=== PATIENT | female | born 1935 | race Caucasian/White ===

== ENCOUNTER 2023-03-15 12:23 | Outpatient (REF) | payer MEDICARE, SELFPAY ==
[2023-03-17 23:09] LABS: TS Negative Control Passed; TS Panel A 10; TS Panel B 3; TS Positive Control Passed; TSpotTB Positive (Negative)
== END 2023-03-15 12:24 | disposition home or self-care (01) ==
LOC: HO.CHCLDS 12:23
PROVIDERS: Visit Provider Pediatrics
DX: Z11.1 Encounter for screening for respiratory tuberculosis (principal)
CPT/HCPCS: 36415; 86481

== ENCOUNTER 2023-03-22 11:49 | Outpatient (REF) | payer OTHER, SELFPAY ==
--- NOTE | ~2023-03-22 | XR_ITS ---
EXAMINATION: XR CHEST 2 VIEWS CLINICAL INFORMATION: Pulmonary tuberculosis. COMPARISON: Chest radiographs dated 05/14/2009. TECHNIQUE: Frontal and lateral views of the chest were obtained. FINDINGS: The heart, great vessels, pulmonary vasculature and mediastinum are normal. The lungs show no focal infiltrate, effusion or pneumothorax. There is no mass, nodule or thoracic lymphadenopathy. There is no acute osseous abnormality. XR/XR chest 2V IMPRESSION: No active cardiopulmonary disease.
== END 2023-03-22 11:50 | disposition home or self-care (01) ==
LOC: HO.XRAY 11:49
PROVIDERS: PCP Pediatrics; Visit Provider Pediatrics
DX: Z11.1 Encounter for screening for respiratory tuberculosis (principal)
CPT/HCPCS: 71046

== ENCOUNTER 2024-01-30 10:47 | Outpatient (REF) | payer OTHER, SELFPAY ==
[2024-01-30 14:03] LABS: MANUAL DIFF FLAG NO
[2024-01-30 14:13] LABS: Eosinophils Percent Auto 6.1 % (0-4); Hematocrit 34.9 % (37.0-47.0); Hemoglobin 11.8 g/dl (12.0-16.0); Imm Gran Pct Auto 0.4 % (0.0-0.4); Lymphocytes Percent Auto 33.6 % (20-40); Mean Corpuscular HGB Conc 33.8 g/dl (31.0-35.0); Mean Corpuscular Hemoglobin 30.9 pg (27.0-33.0); Mean Corpuscular Volume 91.4 fL (80.0-98.0); Mean Platelet Volume 11.8 fL (9.4-12.3); Monocytes Percent Auto 5.8 % (2-11); Neutrophils Percent Auto 53.3 % (45-73); Platelet Count 170 X10*3/uL (160-400); Red Blood Count 3.82 X10*6/uL (4.20-5.50); Red Cell Distribution Width 12.3 % (11.0-16.0); White Blood Count 7.4 X10*3/uL (4.8-10.8)
[2024-01-30 14:14] LABS: Basophils Absolute Auto 0.1 X10*3/uL (0.0-0.2); Basophils Percent Auto 0.8 % (0-2); Eosinophils Absolute Auto 0.5 X10*3/uL (0.0-0.4); Imm Gran Abs Auto 0.03 X10*3/uL (0.00-0.03); Lymphocytes Absolute Auto 2.5 X10*3/uL (1.2-4.9); Monocytes Absolute Auto 0.4 X10*3/uL (0.1-1.2); Neutrophils Absolute Auto 3.9 x10*3/uL (2.0-8.3)
[2024-01-30 14:40] LABS: Alanine Aminotransferase 16 U/L (0-31); Albumin Level 4.2 g/dL (3.5-5.0); Alkaline Phosphatase 94 U/L (39-117); Anion Gap 15 (12-20); Aspartate Amino Transferase 18 U/L (5-31); Bilirubin Direct 0.2 mg/dL (0.0-0.5); Bilirubin Total 0.5 mg/dL (0.0-1.0); Blood Urea Nitrogen 21 mg/dL (9-16); Calcium 10.5 mg/dL (8.4-10.2); Carbon Dioxide 27 mmol/L (22-29); Chloride 100 mmol/L (96-108); Estimated Glomerular Filt Rate 47; Glucose Random 264 mg/dL (60-115); Iron 72 mcg/dL (30-160); Percent Iron Saturation 29 % (15-50); Potassium 4.9 mmol/L (3.3-5.1); Sodium 137 mmol/L (135-145); Total Iron Binding Capacity 252 mcg/dL (228-428); Total Protein 6.7 g/dL (6.5-8.0); Unsaturated Iron Binding 180 ug/dL
[2024-01-30 14:56] LABS: TSH reflex Free T4 3.12 uIU/mL (0.32-4.0)
[2024-01-30 14:57] LABS: Folate 10.1 ng/mL (> or = 4.0); Vitamin B12 740 pg/mL (200-900)
== END 2024-01-30 10:48 | disposition home or self-care (01) ==
LOC: HO.CHCLDS 10:47
PROVIDERS: Visit Provider Pediatrics
DX: I10 Essential (primary) hypertension (principal); E11.9 Type 2 diabetes mellitus without complications; Z79.4 Long term (current) use of insulin; N39.46 Mixed incontinence; M17.0 Bilateral primary osteoarthritis of knee
CPT/HCPCS: 36415; 80048; 80076; 82607; 82746; 83540; 84443; 85025

== ENCOUNTER 2025-02-21 10:41 | Outpatient (REF) | payer OTHER, SELFPAY ==
--- OUTSIDE RECORDS SUMMARY | 2025-02-21 10:43 | XMS_ITS | Clinical Summary ---
Author Organization [facility] ity Address [address] [place] [address] Care Team Providers Care Tufter Hand Name Role Phone Unavailable Primary Care Provider Unavailabl e Social History Tobacco Use Types Packs/Day Years Used Date Smoking Tobacco: Never Assessed Comments Unknown Sex and Gender Information Value Date Recorded Sex Assigned at Not on file Legal Sex Female 4:55 AM EST Gender Identity Not on file Sexual Orientation Not on file Plan of Treatment Health Maintenance Due Date Last Done Comments DTaP,Tdap,and Td Vaccines (1 - Tdap) [birth year]20/1954 Pneumococcal Vaccine: 50+ Ye ars (1 of 1 - PCV) 1987 Zoster Vaccines (1 of 2) 1987 RSV Immunization Adult Patie nts (1 - 1-dose 75+ series) 01/20/2012 COVID-19 Vaccine ( - 2023-2 5 season) 2024 Depression Screening 07/17/2024 Influenza Vaccine (#1) 2025 HIB Vaccines Aged Out No longer eligi ble based on patient's age to complete this topic HPV Vaccines Aged Out No longer eligi ble based on patient's age to complete this topic Hepatitis A Vaccines Aged Out No long er eligible based on patient's age to complete this topic Hepatitis B Vaccines Aged Out No long er eligible based on patient's age to complete this topic IPV Vaccines Aged Out No longer eligi ble based on patient's age to complete this topic MMR Vaccines Aged Out No longer eligi ble based on patient's age to complete this topic Meningococcal ACWY Vaccine Aged Out N o longer eligible based on patient's age to complete this topic Meningococcal B Vaccine Aged Out No l onger eligible based on patient's age to complete this topic RSV Immunization Patients Un sixto 20 months Aged Out No longer eligible b ased on patient's age to complete this topic Varicella Vaccines Aged Out No longer eligible based on patient's age to complete this topic
--- OUTSIDE RECORDS SUMMARY | 2025-02-21 10:43 | XMS_ITS | Encounter Summary ---
Author Organization [employer] Address [address] [place] [address] Care Team Providers Care Commissioning Engineer Name Role Phone Katarina Grey MD Primary Care Provider [phone] Encounter Details Date Type Department Care Team ([facility] st Contact Info) Description 10/10/[address] [facility] [address] [place] [address] Provider, MD Phil Social History Tobacco Use Types Packs/Day Years Used Date Smoking Tobacco: Never Passive Smoke Exposure: Never Smokeless Tobacco: Never Alcohol Answer Date Recorded Frequency of Alcohol Consumption Not on file 05/07/2024 Average Number of Drinks Not on file 024 Frequency of Binge Drinking Not on file 04/17 Score 0 05/07/2024 Depression Answer Date Recorded Patient Health Questionnaire-9 Score 4 01/30/2024 Patient Health Questionnaire-9 Score 4 01/30/2024 Last PHQ-9: Questionnaire Data Not on file 0 01/30/2024 Housing Stability Answer Date Recorded What is your housing situation today? I have nayan miller 01/30/[address] you li ve. Do you have problems with any of the following? None of the above 01/30/2024 Food Insecurity Answer Date Recorded Within the past 12 months, y ou worried that your food would run out before you got money to buy more: Never True 01/30/2024 Within the past 12 months,th e food you bought just didn't last and you didn't have enough money to get more: Never True Transportation Answer Date Recorded In the past 12 months, has l ack of transportation kept you from medical appts, meetings, work or from getting things needed for daily living? No 01/30/2024 Utilities Answer Date Recorded In the past 12 months, has t he electric, gas, oil or water company threatened to shut off services in your home? No 01/30/2024 Depression Answer Date Recorded Patient Health Questionnaire-2 Score 1 01/30/2024 Internet Access Answer Date Recorded Internet Access Q1 No 03/15/2024 Internet Access Q2 Not on file 03/15/2024 Comments Unknown Sex and Gender Information Value Date Recorded Sex Assigned at Female 05/16/2022 10:20 AM EDT Legal Sex Female 10:20 AM EDT Gender Identity Female 05/16/2022 10:20 AM EDT Sexual Orientation Straight 05/16/2022 10 :20 AM EDT documented as of this encounter Plan of Treatment Not on file documented as of this encounter Procedures Procedure Name Priority Date/Time Associated Diagnosis Comments DIABETES EYE EXAM Routine 10/02/2024 10:56 AM EDT documented in this encounter Results * Diabetes Eye Exam (10/02/2024 10:56 AM EDT) Historical Provider HEALTH MAINTENANCE Final Result documented in this encounter Visit Diagnoses Not on filedocumented in this encounter Additional Health Concerns Assessment Noted Time PHQ-9 Depression Total Score: 4 01/30/20 24 10:21 AM EDT documented as of this encounter Care Teams Commissioning Engineer Relationship Specialty Start Date End Date Katarina Grey MD [address] [place] [address] PCP - General Family Medicine 02/20/13 documented as of this encounter
[2025-02-21 14:49] LABS: MANUAL DIFF FLAG NO
[2025-02-21 15:06] LABS: Hematocrit 36.1 % (37.0-47.0); Hemoglobin 11.8 g/dl (12.0-16.0); Imm Gran Abs Auto 0.02 X10*3/uL (0.00-0.03); Imm Gran Pct Auto 0.3 % (0.0-0.4); Lymphocytes Absolute Auto 2.0 X10*3/uL (1.2-4.9); Mean Corpuscular HGB Conc 32.7 g/dl (31.0-35.0); Mean Corpuscular Hemoglobin 29.6 pg (27.0-33.0); Mean Corpuscular Volume 90.7 fL (80.0-98.0); NRBC Abs Auto 0.000 X10*3/uL (0.0-0.012); NRBC Pct Auto 0.0 /100WBC (0.0-0.2); Platelet Count 200 X10*3/uL (160-400); Red Blood Count 3.98 X10*6/uL (4.20-5.50); White Blood Count 7.4 X10*3/uL (4.8-10.8)
[2025-02-21 15:34] LABS: Microalbum/Creatinine Ratio Ur 24.2 ug/mg cr (<30)
[2025-02-21 15:53] LABS: Alanine Aminotransferase 9 U/L (0-31); Albumin Level 4.2 g/dL (3.5-5.0); Alkaline Phosphatase 82 U/L (39-117); Anion Gap 13 (12-20); Aspartate Amino Transferase 24 U/L (5-31); Blood Urea Nitrogen 20 mg/dL (9-16); Calcium 10.3 mg/dL (8.4-10.2); Carbon Dioxide 29 mmol/L (22-29); Chloride 102 mmol/L (96-108); Estimated Glomerular Filt Rate 50; Iron 60 mcg/dL (30-160); Percent Iron Saturation 27 % (15-50); Potassium 4.5 mmol/L (3.3-5.1); Sodium 139 mmol/L (135-145); Total Iron Binding Capacity 221 mcg/dL (228-428); Total Protein 6.7 g/dL (6.5-8.0); Unsaturated Iron Binding 161 ug/dL
[2025-02-21 16:19] LABS: Folate 9.1 ng/mL (> or = 4.0); Vitamin B12 > 2000 pg/mL (200-900)
== END 2025-02-21 10:42 | disposition home or self-care (01) ==
LOC: HO.CHCLDS 10:41
PROVIDERS: Visit Provider Pediatrics
DX: I10 Essential (primary) hypertension (principal); N39.46 Mixed incontinence; R41.3 Other amnesia; Z71.3 Dietary counseling and surveillance; Z71.82 Exercise counseling
CPT/HCPCS: 36415; 80048; 80076; 82043; 82570; 82607; 82746; 83540; 84443; 85025